=== PATIENT | female | born 1980 | race Caucasian/White ===

== ENCOUNTER 2020-09-03 23:42 | Emergency (ER) | payer BC ==
[~2020-09-03] VITALS: Ht 165.1 cm; Wt 61.2 kg
[2020-09-04] MEDS ORDERED: CELEXA40 MG PO (00:03)
[2020-09-04] MEDS ORDERED: LIBRAX CAPSULE1 EACH PO (00:03)
[2020-09-04] MEDS ORDERED: GRALISE600 MG PO (00:04)
[2020-09-04] MEDS ORDERED: GRALISE300 MG PO (00:04)
[2020-09-04] MEDS ORDERED: CHLORDIAZEPOXID10 MG PO (00:04)
[2020-09-04] MEDS ORDERED: SINGULAIR 10 MG10 M1 PO (00:05)
[2020-09-04] MEDS ORDERED: COMBIVENT INH (00:05)
[2020-09-04] MEDS ORDERED: MAXALT10 MG PO (00:05)
[2020-09-04] MEDS ORDERED: AMITRIPTYLINE H50 M3 PO (00:05)
[2020-09-04] MEDS ORDERED: HYDROCODON-ACE1 EAC8 PO (01:02)
[2020-09-04] MEDS ORDERED: AUGMENTIN 875-1 EACH PO (01:03)
[2020-09-04 01:12] VITALS: BP 110/64
== END 2020-09-04 01:12 | disposition home or self-care (01) ==
LOC: M.ERS 23:42
DX: S61.411A Laceration without foreign body of right hand, initial encounter (principal); J45.909 Unspecified asthma, uncomplicated; Z87.442 Personal history of urinary calculi; Z91.041 Radiographic dye allergy status; Z88.8 Allergy status to other drugs, medicaments and biological substances; W54.0XXA Bitten by dog, initial encounter; Y93.89 Activity, other specified; Y92.89 Other specified places as the place of occurrence of the external cause; Y99.8 Other external cause status